=== PATIENT | female | born 1990 ===

== ENCOUNTER 2024-10-05 09:45 | Outpatient (CLI) | payer OTHER | END 2024-10-05 09:46 | disposition home or self-care (01) | LOC: PRENATAL 09:45 | PROVIDERS: ATTEND Obstetrics & Gynecology Maternal & Fetal Medicine | DX: O26.849 Uterine size-date discrepancy, unspecified trimester (principal); O28.1 Abnormal biochemical finding on antenatal screening of mother; O34.219 Maternal care for unspecified type scar from previous cesarean delivery; O34.10 Maternal care for benign tumor of corpus uteri, unspecified trimester; Z3A.18 18 weeks gestation of pregnancy ==

== ENCOUNTER 2024-10-25 12:59 | Outpatient (CLI) | payer OTHER | END 2024-10-25 13:01 | disposition home or self-care (01) | LOC: PRENATAL 12:59 | PROVIDERS: ATTEND Obstetrics & Gynecology Maternal & Fetal Medicine | DX: O44.00 Complete placenta previa NOS or without hemorrhage, unspecified trimester (principal); O28.1 Abnormal biochemical finding on antenatal screening of mother; O34.219 Maternal care for unspecified type scar from previous cesarean delivery; O34.10 Maternal care for benign tumor of corpus uteri, unspecified trimester; Z14.8 Genetic carrier of other disease; O43.90 Unspecified placental disorder, unspecified trimester; Z3A.21 21 weeks gestation of pregnancy ==

== ENCOUNTER 2024-12-19 10:02 | Outpatient (CLI) | payer OTHER | END 2024-12-19 10:03 | disposition home or self-care (01) | LOC: PRENATAL 10:02 | PROVIDERS: ATTEND Obstetrics & Gynecology Maternal & Fetal Medicine | DX: O26.849 Uterine size-date discrepancy, unspecified trimester (principal); O44.00 Complete placenta previa NOS or without hemorrhage, unspecified trimester; O28.1 Abnormal biochemical finding on antenatal screening of mother; O34.219 Maternal care for unspecified type scar from previous cesarean delivery; O34.10 Maternal care for benign tumor of corpus uteri, unspecified trimester; Z14.8 Genetic carrier of other disease; O43.90 Unspecified placental disorder, unspecified trimester; O99.019 Anemia complicating pregnancy, unspecified trimester; Z3A.29 29 weeks gestation of pregnancy ==

== ENCOUNTER 2025-01-13 12:58 | Outpatient (CLI) | payer OTHER | END 2025-01-13 12:59 | disposition home or self-care (01) | LOC: PRENATAL 12:58 | PROVIDERS: ATTEND Obstetrics & Gynecology Maternal & Fetal Medicine | DX: O26.849 Uterine size-date discrepancy, unspecified trimester (principal); O36.8130 Decreased fetal movements, third trimester, not applicable or unspecified; O28.1 Abnormal biochemical finding on antenatal screening of mother; O34.219 Maternal care for unspecified type scar from previous cesarean delivery; O34.10 Maternal care for benign tumor of corpus uteri, unspecified trimester; Z14.8 Genetic carrier of other disease; O43.90 Unspecified placental disorder, unspecified trimester; O99.019 Anemia complicating pregnancy, unspecified trimester; Z3A.34 34 weeks gestation of pregnancy ==

== ENCOUNTER → 2025-02-13 11:24 | Outpatient (CLI) | payer OTHER | END | disposition home or self-care (01) | LOC: PRENATAL 11:24 | PROVIDERS: ATTEND Obstetrics & Gynecology Maternal & Fetal Medicine | DX: O26.849 Uterine size-date discrepancy, unspecified trimester (principal); O36.8130 Decreased fetal movements, third trimester, not applicable or unspecified; O28.1 Abnormal biochemical finding on antenatal screening of mother; O34.219 Maternal care for unspecified type scar from previous cesarean delivery; O34.10 Maternal care for benign tumor of corpus uteri, unspecified trimester; Z14.8 Genetic carrier of other disease; Z3A.37 37 weeks gestation of pregnancy ==